=== PATIENT | female | born 1930 | race Caucasian/White ===

== ENCOUNTER → 2017-02-19 | Outpatient (CLI) | payer OTHER ==
--- NOTE | 2017-02-19 16:05 | RAD ---
DEXA scan 02/19/2017 Clinical history: Risk factors for osteoporosis. Postmenopausal female. Technique: DEXA of the lumbar spine and right hip was performed. FINDINGS: The mean bone mineral density of the lumbar spine is 0.842 g/sq cm. This corresponds to a T score of -2.8. This is consistent with mild osteoporosis. The mean bone mineral density of the right hip is 0.795 g/sq cm. This corresponds to a T score of -1.7. This is consistent with moderate osteopenia IMPRESSION: 1. Moderate osteopenia the right hip. 2. Mild osteoporosis of the lumbar spine. According to [employer], the definition of osteoporosis and osteopenia for women is as follows: Normal = T score at or above -1.0 SD. Osteopenia = T score between -1.0 and -2.5 SD. Osteoporosis = T score at or below -2.5 SD.
== END | disposition home or self-care (01) ==
LOC: DXRAD 13:17
PROVIDERS: ATTEND Physician Assistant Medical
DX: M81.0 Age-related osteoporosis without current pathological fracture (principal); M85.88 Other specified disorders of bone density and structure, other site; Z78.0 Asymptomatic menopausal state
CPT/HCPCS: 77080